=== PATIENT | female | born 1980 | race Caucasian/White ===

== ENCOUNTER 2019-02-24 20:33 | Observation (INO) ==
[2019-02-25] MEDS ORDERED: Naloxone 0.4 MG/ML INJ IVP PRN (00:47)
--- NOTE | 2019-02-25 01:16 | Internal Med History&Physical ---
<JianJamNicole R - Last Filed: 02/25/19 01:12> Date of Encounter: 02/25/19 Time of Encounter: 00:45 Internal Medicine - H&P: HPI Admitted From: Hospital to Hospital Transfer History of present illness: Ms. De La Rosa is a 38 year old female with PMHx of depression and anxiety who presented to [place] emergency department yesterday after an apparent suicide attempt. The patient tried to overdose on medications. Per the report the patient took an unknown amount of Prozac and hydralazine, but note from [facility] states Vistaril which is the medication the patient is prescribed. Patient is currently somnolent but arouses to voice. She refuses to answer questions at this time but states she has no complaints other than that she is cold. [facility] emergency department did speak with poison control about the management of the patient and they state that the patient needed 6 hours of close observation with an EKG obtained 4 hours after ingestion of the medications. Their initial EKG was timed at 17:06 and showed borderline QT prolongation. They were told by poison control that if the repeat EKG showed a QTC greater than 500 ms that the patient should be given 2 g of magnesium via IV. There are also told to repeat labs including magnesium which they did and the labs were normal. There was no repeat EKG done at 2100. Patient denies complaints at this time. The patient does have a pink slip upon transfer from [facility]. Past Med Surg Social Fam HX - Past Medical History Source: old records reviewed Medical history: asthma, migraine, other Additional medical history: MASS ON BRAIN, SEASONAL ALLERGIES Psychiatric history: anxiety, depression - Social History Smoking Status: Current every day smoker Smokeless Tobacco Status: No Alcohol use: none Drug use: IV Drug Use Internal Medicine - H&P: Meds Ibuprofen [Motrin] 600 mg PO Q6HR PRN #16 tab 06/22/18 [Rx] HYDROcodone/Acet 7.5/325 mg [[place] 7.5-325 mg] 1 tab PO TID 12/18/18 [History] Allergy/AdvReac Type Severity Reaction Status Date / Time Buspirone [From BuSpar] Allergy See Verified 06/22/18 20:45 Comments codeine Allergy Hives Verified 12/18/18 17:50 desvenlafaxine [From Pristiq] Allergy See Verified 06/22/18 20:45 Comments morphine Allergy See Verified 06/22/18 20:45 Comments prochlorperazine Allergy Seizure Verified 06/22/18 20:45 [From Compazine] All Systems PM: A 10-system review of systems was performed and is negative for pertinent findings except as documented above in the HPI. - Constitutional Constitutional: as per HPI - EENT Eyes: as per HPI - Cardiovascular Cardiovascular ROS IM: no chest pain, no dyspnea - Respiratory Respiratory: no dyspnea, no wheezing - Gastrointestinal Gastrointestinal: no abdominal pain, no nausea, no vomiting - Musculoskeletal Musculoskeletal ROS IM: no back pain, no muscle weakness, no neck pain - Neurological Neurological ROS: no confusion, no dizziness, no vertigo - Psychiatric Psychiatric: anxiety, depression, suicidal ideation, no auditory hallucinations, no visual hallucinations - Constitutional Vitals: Temp Pulse Resp BP Pulse Ox 97.9 F 75 14 105/69 97 02/24/19 23:53 02/24/19 23:53 02/24/19 23:53 02/24/19 23:53 02/24/19 23:53 Exam: Patient is somnolent but does arouse to voice and is able to answer questions. - Eye Eye exam: Present: EOMI, PERRL - Neck Neck exam general surgery: Present: normal inspection. Absent: tenderness - Respiratory Respiratory exam: Present: CTAB. Absent: wheezes - Cardiovascular Cardiovascular exam: Present: RRR. Absent: diastolic murmur, systolic murmur - GI/Abdominal GI/Abdominal exam: Present: soft. Absent: firm, guarding, rebound, rigid, tenderness - Extremities Exam Extremities exam: Present: normal inspection. Absent: calf tenderness, pedal edema, tenderness - Neurological Exam Neurological exam: Present: alert, oriented X3 - Psychiatric Psychiatric exam: Present: flat affect, suicidal ideation - Skin Skin exam: Present: dry, intact, warm Internal Med - H&P Results - EKG Data -: EKG Interpreted by Myself EKG shows normal: sinus rhythm Rate: normal - EKG Data Prior EKG available for review: yes When compared to previous EKG: there is no significant change Interpretation IM: normal EKG EKG comments: 02/25/19 01:19 EKG was obtained [id number] Heart rate 60 bpm, MI interval 74, QRS duration 108, QT 495, QTc 497 Sinus rhythm without any QT segment prolongation. No ST segment elevations or depressions. Unremarkable EKG. Unchanged from previous EKG obtained at 17:06 on 02/24/2019 - Assessment and Plan (1) Suicide attempt by multiple drug overdose Current Visit: Yes Status: Acute Assessment and plan: Patient transferred from [place] ER after attempted suicide by Prozac and hydralazine Per recommendations from poison control the patient should be monitored and have repeat labs and EKG done Labs are repeated at [place] and were within normal limits EKG repeated here did not show a prolonged QT, therefore we will not give any magnesium at this time Patient does have a sitter due to her suicide attempt She has been pink slipped We will continue to monitor her overnight and once cleared have her speak with [facility] Qualifiers: Encounter type: initial encounter Qualified Code(s): T50.902A - Poisoning by unspecified drugs, medicaments and biological substances, intentional self- harm, initial encounter (2) Depression Current Visit: Yes Status: Acute Assessment and plan: Plan as above Qualifiers: Depression Type: major depressive disorder Major depression recurrence: unspecified whether recurrent Active/Remission status: currently active Major depression episode severity: unspecified Qualified Code(s): F32.9 - Major depressive disorder, single episode, unspecified (3) Anxiety Current Visit: Yes Status: Acute Assessment and plan: Plan as above (4) DVT prophylaxis Current Visit: Yes Status: Acute Assessment and plan: Patient is at low risk as she is ambulatory No prophylaxis at this time - Time Spent With Patient Total time spent is greater than 50% in coordination of care (as documented) at patient's floor/unit and/or counseling patient: - VTE Reasons for not Prescribing Prophylaxis: Treatment not Indicated - Low risk for VTE <Allison Tan - Last Filed: 02/26/19 05:31> Date of Encounter: 02/25/19 Internal Medicine - H&P: HPI History of present illness: Ms. De La Rosa is a 38 year old female All Systems PM: A 10-system review of systems was performed and is negative for pertinent findings except as documented above in the HPI. - Constitutional Vitals: Temp Pulse Resp BP Pulse Ox 98.1 F 69 16 93/54 98 02/26/19 04:40 02/26/19 04:40 02/26/19 04:40 02/26/19 04:40 02/26/19 04:40 Internal Med - H&P Results - Labs CBC & Chem 7: 02/25/19 08:00 02/25/19 08:00 Labs: Short CBC 02/25/19 Range/Units 08:00 WBC 7.4 (4.3-11.1) K/mcL Hgb 12.5 (11.5-15.4) g/dL Hct 38.8 (35.3-44.9) % Plt Count 192 (140-400) K/mcL Neutrophils # 4.1 (1.6-8.9) K/mcL BMP 02/25/19 08:00 Sodium 143 Potassium 3.9 Chloride 109 H Carbon Dioxide 26 BUN 9 Creatinine 0.98 Glucose 104 Calcium 8.8 - Time Spent With Patient Total time spent is greater than 50% in coordination of care (as documented) at patient's floor/unit and/or counseling patient: - Attending Attestation I performed a history and physical examination of the patient and discussed his management with the resident. I reviewed the residents note and agree with the documented findings and plan of care.
[2019-02-25 08:25] LABS: Basophils % 0.5 %; Eosinophils # 0.1 K/mcL (0.0-0.6); Eosinophils % 1.8 %; Hematocrit 38.8 % (35.3-44.9); Hemoglobin 12.5 g/dL (11.5-15.4); Immature Granulocytes % 0.1 % (0-4); Lymphocytes # 2.5 K/mcL (0.6-4.6); Lymphocytes % 33.8 %; Mean Corpuscular HGB Conc 32.2 g/dL (31.6-35.5); Mean Corpuscular Hemoglobin 31.5 pg (28.0-33.3); Mean Corpuscular Volume 97.7 fL (83.0-100.0); Monocytes # 0.6 K/mcL (0.0-1.3); Monocytes % 7.8 %; Neutrophils # 4.1 K/mcL (1.6-8.9); Platelet Count 192 K/mcL (140-400); Red Blood Count 3.97 M/mcL (3.82-4.97); Red Cell Distribution Width 12.4 % (11.5-14.5); White Blood Count 7.4 K/mcL (4.3-11.1)
--- NOTE | 2019-02-25 08:56 | Internal Med Progress Note ---
Hospitalist Progress Note - Encounter Date of Encounter: 02/25/19 - Subjective Interval History: Miss De La Rosa is 38 year old FEmale with a PMH of deppresion and anxiety presented to ER last night after she attempt a suicide by taking overdose of fluoxetine and hydralazine , - Exam Vitals: Temp Pulse Resp BP Pulse Ox 98.1 F 59 15 95/54 98 02/25/19 07:06 02/25/19 07:06 02/25/19 07:06 02/25/19 07:06 02/25/19 07:06 - Time Spent with Patient Total time spent is greater than 50% in coordination of care (as documented) at patient's floor/unit and/or counseling patient: - VTE Reasons for not Prescribing Prophylaxis: Treatment not Indicated - Low risk for VTE Consult Discharge Plan - Plan Referrals: NONE,PCP [Primary Care Provider] -
[2019-02-25 09:35] LABS: BUN/Creatinine Ratio 9 (6-26); Blood Urea Nitrogen 9 mg/dL (6-20); Calcium 8.8 mg/dL (8.6-10.3); Carbon Dioxide 26 mEq/L (23-29); Chloride 109 mEq/L (98-107); Glucose 104 mg/dL (70-105); Osmolality,Calculated 295 (280-300); Phosphorous 3.7 mg/dL (2.7-4.5); Potassium 3.9 mEq/L (3.5-5.1); Sodium 143 mEq/L (136-145); eGFR For African Americans > 60 (> 60); eGFR For Non-African Americans > 60 (> 60)
--- NOTE | 2019-02-25 11:54 | Consult Note ---
Date of Encounter: 02/25/19 Time of Encounter: 11:50 Assessment & Recommendation (1) Major depress dis, severe Current visit: Yes Status: Acute Assessment & Recommendation: Client denies ongoing SI but she remains hopeless and her attempt was serious. Would admit her for inpatient mental health care once medically stable. Would not recommend starting any new meds at this point. Client states she has had bad side effects to mental health meds in the past and she is close enough to her overdose that it would not be clinically useful to start something new this soon. History of Present Illness Requesting Physician: Gregorio Hawthorne DO Reason for consult: overdose History of present illness: Ms. De La Rosa is a 38 year old female who presented to the hospital following an overdose of Prozac and Vistaril. Client reports she took a whole bottle of each. Claims she was not planning to overdose and no longer has active suicidal thoughts. However, she admits to still feeling hopeless. Client has a history of one previous suicide attempt and one previous hospitalization "many years ago." She is not currently linked with a psychiatrist or counselor. PCP prescribes current meds. Lives with her boyfriend and his father. Abuses methamphetamines. Physically healthy except she reports having a brain bleed back in 2014. Has chronic headaches now. Supposed to follow with a Neurologist but has not followed through with making appointments. Strong family history of depression. Has a brother and grandparent who committed suicide. Mother is treated for depression. CC: Gregorio Hawthorne DO Past Med Surg Social Fam HX - Past Medical History Medical history: asthma, migraine, other - Past Psychiatric History Psychiatric history: Reports: anxiety, depression, prior suicide attempt, previous psychiatric hospitalization Family psychiatric history: Yes Family Psychiatric History Details: mother-depression Family History of Suicide: Completed Family Suicide History Details: brother, step-brother, grandparent - Social History Smoking Status: Current every day smoker Smokeless Tobacco Status: No Alcohol use: none Drug use: IV Drug Use Medications & Allergies Ibuprofen [Motrin] 600 mg PO Q6HR PRN #16 tab 06/22/18 [Rx] HYDROcodone/Acet 7.5/325 mg [[place] 7.5-325 mg] 1 tab PO TID 12/18/18 [History] Prozac mg PO DAILY 02/24/19 [History] Vistaril mg PO Q6H PRN 02/24/19 [History] Allergy/AdvReac Type Severity Reaction Status Date / Time Buspirone [From BuSpar] Allergy See Verified 06/22/18 20:45 Comments codeine Allergy Hives Verified 12/18/18 17:50 desvenlafaxine [From Pristiq] Allergy See Verified 06/22/18 20:45 Comments morphine Allergy See Verified 06/22/18 20:45 Comments prochlorperazine Allergy Seizure Verified 06/22/18 20:45 [From Compazine] Review of Systems Constitutional: Reports: other Eyes: Denies: eye pain, vision change Ears, Nose, Throat: Denies: ear pain, throat pain, dental pain, hearing loss, congestion Cardiovascular: Denies: chest pain, palpitations, dyspnea on exertion Respiratory: Denies: cough, dyspnea, wheezes Gastrointestinal: Reports: nausea Genitourinary female: Denies: urgency, dysuria, frequency, abnormal menses, dyspareunia Musculoskeletal: Reports: other Integumentary: Denies: rash, lesions, pruritus Neurological: Reports: headache Endocrine: Denies: fatigue, heat or cold intolerance Hematologic/Lymphatic: Denies: easy bruising, lymphadenopathy Allergic/Immunologic: Denies: urticaria, itchy eyes Psychiatry Exam - Constitutional Vitals: Temp Pulse Resp BP Pulse Ox 98.3 F 74 17 105/64 97 02/25/19 11:34 02/25/19 11:34 02/25/19 11:34 02/25/19 11:34 02/25/19 11:34 General appearance: age & developmentally appropriate, well-groomed, well- nourished - Musculoskeletal Gait: normal Station: relaxed Strength & Tone: normal for patient - Psychiatric Patient Orientation: Yes Person, Yes Time, Yes Place Level of alertness: Alert Behavior: calm, cooperative Psychomotor activity: Normal Eye Contact: Maintains Eye Contact Mood Description: Depressed Affect description: congruent with mood Speech Volume: Normal Speech pattern: normal rate, normal rhythm, normal tone, fluent, spontaneous Language & Vocabulary: consistent with education Thought Process: Linear Thought Content: Yes Suicidal ideation, No Homicidal ideation, No Overt delusions Perceptual Disturbances: No Auditory hallucinations, No Visual hallucinations Attention Span Ability: Capable of Focused Attention Memory Description: Grossly Intact Patient Reliability: Reliable Historian Fund of knowledge: Yes abstraction ability, Yes aware of current events Intelligence Estimate: Average Judgment: Limited Insight: Partial Results - Labs Labs: Laboratory Last Values WBC 7.4 K/mcL (4.3-11.1) 02/25/19 08:00 RBC 3.97 M/mcL (3.82-4.97) 02/25/19 08:00 Hgb 12.5 g/dL (11.5-15.4) 02/25/19 08:00 Hct 38.8 % (35.3-44.9) 02/25/19 08:00 MCV 97.7 fL (83.0-100.0) 02/25/19 08:00 MCH 31.5 pg (28.0-33.3) 02/25/19 08:00 MCHC 32.2 g/dL (31.6-35.5) 02/25/19 08:00 RDW 12.4 % (11.5-14.5) 02/25/19 08:00 Plt Count 192 K/mcL (140-400) 02/25/19 08:00 MPV 10.0 fL (9.4-12.4) 02/25/19 08:00 Immature Gran % 0.1 % (0-4) 02/25/19 08:00 Seg Neutrophils % 56.0 % 02/25/19 08:00 33.8 % 02/25/19 08:00 7.8 % 02/25/19 08:00 1.8 % 02/25/19 08:00 0.5 % 02/25/19 08:00 4.1 K/mcL (1.6-8.9) 02/25/19 08:00 2.5 K/mcL (0.6-4.6) 02/25/19 08:00 0.6 K/mcL (0.0-1.3) 02/25/19 08:00 0.1 K/mcL (0.0-0.6) 02/25/19 08:00 0.0 K/mcL (0.0-0.2) 02/25/19 08:00 Sodium 143 mEq/L (136-145) 02/25/19 08:00 Potassium 3.9 mEq/L (3.5-5.1) 02/25/19 08:00 Chloride 109 mEq/L (98-107) H 07/04/19 08:00 Carbon Dioxide 26 mEq/L (23-29) 02/25/19 08:00 BUN 9 mg/dL (6-20) 02/25/19 08:00 0.98 mg/dL (0.60-1.20) 02/25/19 08:00 Est GFR ( Amer) > 60 (> 60) 02/25/19 08:00 Est GFR (Non-Af Amer) > 60 (> 60) 02/25/19 08:00 9 (6-26) 02/25/19 08:00 Glucose 104 mg/dL (70-105) 02/25/19 08:00 295 (280-300) 02/25/19 08:00 Calcium 8.8 mg/dL (8.6-10.3) 02/25/19 08:00 Phosphorus 3.7 mg/dL (2.7-4.5) 02/25/19 08:00 Magnesium 2.0 mg/dL (1.6-2.6) 02/25/19 08:00 Consult Discharge Plan - Plan Referrals: NONE,PCP [Primary Care Provider] -
--- NOTE | 2019-02-25 15:28 | Internal Med Progress Note ---
Hospitalist Progress Note - Encounter Date of Encounter: 02/25/19 Time of Encounter: 08:20 - Subjective Interval History: Ms. De La Rosa is a 38 year old female who presented to the hospital following an overdose of Prozac and Vistaril. Today the patient was seen she was sitting comfortable . she said she took a whole bottle of each medication due to too much pressure on her , she admits to still feeling hopeless. she has a history of one previous suicide attempt and Strong family history of depression. Has a brother and grandparent who committed suicide. Mother is treated for depression.she had no fever no vomiting no abdominal pain no chest pain just felt cold and nausea she Has chronic headaches now. Supposed to follow with a Neurologist but has not followed through with making appointments. - Exam Vitals: Temp Pulse Resp BP Pulse Ox 98.3 F 74 17 105/64 97 02/25/19 11:34 02/25/19 11:34 02/25/19 11:34 02/25/19 11:34 02/25/19 11:34 - Assessment and Plan (1) Suicide attempt by multiple drug overdose Current Visit: Yes Status: Acute Assessment and Plan: Patient admitted to [facility] after attempted suicide by Prozac and hydralazine she was monitored and lab and EKG was done for her and EKG showes increase QTI to 497 EKG repeated still prolonged QT but less than before , now is 473, therefore we will not give any magnesium at this time psychatric consult was made and they said she will be able to transfer to to inpatient mental health care when she is medically stable , and no medication to be given for deppresion now Patient does have a sitter due to her suicide attempt (2) Anxiety Current Visit: Yes Status: Acute Assessment and Plan: plan as above (3) Depression Current Visit: Yes Status: Acute Assessment and Plan: plan as above - Time Spent with Patient Total time spent is greater than 50% in coordination of care (as documented) at patient's floor/unit and/or counseling patient: Internal Medicine: Result - Labs CBC & Chem 7: 02/25/19 08:00 02/25/19 08:00 Labs: Short CBC 02/25/19 Range/Units 08:00 WBC 7.4 (4.3-11.1) K/mcL Hgb 12.5 (11.5-15.4) g/dL Hct 38.8 (35.3-44.9) % Plt Count 192 (140-400) K/mcL Neutrophils # 4.1 (1.6-8.9) K/mcL BMP 02/25/19 08:00 Sodium 143 Potassium 3.9 Chloride 109 H Carbon Dioxide 26 BUN 9 Creatinine 0.98 Glucose 104 Calcium 8.8 - VTE Reasons for not Prescribing Prophylaxis: Treatment not Indicated - Low risk for VTE Consult Discharge Plan - Plan Referrals: NONE,PCP [Primary Care Provider] - (1) Suicide attempt by multiple drug overdose Qualifiers: Encounter type: initial encounter Qualified Code(s): T50.902A - Poisoning by unspecified drugs, medicaments and biological substances, intentional self-harm, initial encounter (3) Depression Qualifiers: Depression Type: major depressive disorder Major depression recurrence: un specified whether recurrent Active/Remission status: currently active Major depression episode severity: unspecified Qualified Code(s): F32.9 - Major depressive disorder, single episode, unspecified
--- NOTE | 2019-02-25 18:01 | Discharge Summary ---
- NOTES TO OUTPATIENT PROVIDER Notes to Outpatient Provider: 28-year-old female admitted for suicidal attack after taking a full bottle of fluoxitine and hydralazine . She remained asymptomatic except for EKG shows prolonged QT interval 497 today EKG repeated on QT interval was 445 she was transferred to psychiatric inpatient unit ac cording to her psychiatric doctor consult Orders not resulted at time of discharge: Pending orders 02/25/19 00:45 EKG [ECG 12 lead ECG] [ECG] Stat 02/25/19 00:57 EKG [ECG 12 lead ECG] [ECG] Stat 02/25/19 05:00 ECG 12 lead ECG [ECG] Routine ECG 12 lead ECG [ECG] Routine 02/25/19 14:26 EKG [ECG 12 lead ECG] [ECG] Routine Date of Encounter: 02/25/19 Time of Encounter: 10:00 - Discharge Diagnosis (1) Suicide attempt by multiple drug overdose Priority: Primary Status: Acute Qualifiers: Encounter type: initial encounter Qualified Code(s): T50.902A - Poisoning by unspecified drugs, medicaments and biological substances, intentional self- harm, initial encounter (2) Anxiety Priority: Secondary Status: Acute (3) Depression Priority: Secondary Status: Acute Qualifiers: Depression Type: major depressive disorder Major depression recurrence: unspecified whether recurrent Active/Remission status: currently active Major depression episode severity: unspecified Qualified Code(s): F32.9 - Major depressive disorder, single episode, unspecified Hospital course: Ms. De La Rosa is a 38 year old female with a known past medical history of depression and anxiety and a family history of depression and suicidal attempts was attempted by taking flouxitine and hydralazine she is asymptomatic no fever no vomiting no changes. No abdominal pain .the EKG at time of admission shows prolonged QT interval 495 that was repeated again and last one show QTI 445 she is medically stable and according to the psychiatric consultation she would be able to transfer to psychiatric inpatient unit - Time Spent with Patient Total time spent providing and/or coordinating discharge services: - Discharge Medications Prescriptions: Continued HYDROcodone/Acet 7.5/325 mg [[place] 7.5-325 mg] 1 tab PO TID Ibuprofen [Motrin] 600 mg PO Q6HR PRN #16 tab PRN Reason: Pain or fever Discontinued Vistaril mg PO Q6H PRN PRN Reason: Anxiety Prozac mg PO DAILY Home Medications: Ibuprofen [Motrin] 600 mg PO Q6HR PRN #16 tab 06/22/18 [Rx] HYDROcodone/Acet 7.5/325 mg [[place] 7.5-325 mg] 1 tab PO TID 12/18/18 [History] Allergies/Adverse Reactions: Allergy/AdvReac Type Severity Reaction Status Date / Time Buspirone [From BuSpar] Allergy See Verified 06/22/18 20:45 Comments codeine Allergy Hives Verified 12/18/18 17:50 desvenlafaxine [From Pristiq] Allergy See Verified 06/22/18 20:45 Comments morphine Allergy See Verified 06/22/18 20:45 Comments prochlorperazine Allergy Seizure Verified 06/22/18 20:45 [From Compazine] Date of admission: 02/24/19 22:55 Primary care physician: PCP NONE Consults: 02/25/19 08:02 Consult to Psychiatry [CONS] Routine Consulting Provider: Psychiatry Silvana Reason consult: Other 02/25/19 09:01 Consult to Meter Tester Primary [CONS] Routine Reason for SW Consult: Mental Health Resources. Admitted for intentional OD Discharging clinician: Gregorio Hawthorne Anticipated date of discharge: 02/25/19 - Constitutional Vitals: Temp Pulse Resp BP Pulse Ox 98.3 F 74 17 105/64 97 02/25/19 11:34 02/25/19 11:34 02/25/19 11:34 02/25/19 11:34 02/25/19 11:34 General appearance: Present: cooperative, A&O X 3, no acute distress - Head Head exam: Present: atraumatic, normal inspection - Eye Eye exam: Present: EOMI, normal appearance - Neck Neck exam general surgery: Present: full ROM, supple - Respiratory Respiratory exam: Present: CTAB - Cardiovascular Cardiovascular exam: Present: RRR, +S1, +S2 - GI/Abdominal GI/Abdominal exam: Present: normal bowel sounds, soft - Extremities Exam Extremities exam: Present: full ROM, normal capillary refill - Psychiatric Psychiatric exam: Present: depressed, suicidal ideation - Skin Skin exam: Present: intact, warm - Patient Status Condition: Good Functional capacity at discharge: independent ambulation Overall status at discharge: patient is back to baseline - Discharge Instructions Follow Up With: NONE,PCP [Primary Care Provider] - Additional Instructions: Patient is instructed to not take overdose again and follow up with her primary care physician and with hair psychiatric doctor as an outpatient - VTE Reasons for not Prescribing Prophylaxis: Treatment not Indicated - Low risk for VTE
[2019-02-25] MEDS ORDERED: 0.9 % Sodium Chloride 500 ML IVC ONE (18:17)
--- NOTE | 2019-02-25 18:25 | Internal Med Progress Note ---
Hospitalist Progress Note - Encounter Date of Encounter: 02/25/19 Time of Encounter: 10:00 - Subjective Interval History: 42-year-old female admitted to the hospital due to suicidal attempt after taking a full bottle of flouxitine and hydralazine she has a past medical history of depression and anxiety and a positive family history of depression she is stable she has no fever no vomiting no abdominal pain no chest pain except for nausea and the patient was feeling better she is she is still depressed but not agitated and she has no suicidal ideas she only complains of cold temp - Exam Vitals: Temp Pulse Resp BP Pulse Ox 98.1 F 91 18 129/81 99 02/25/19 18:07 02/25/19 18:07 02/25/19 18:07 02/25/19 18:07 02/25/19 18:07 Exam: Gen: Vitals noted. No acute distress. HEENT: Atraumatic; oropharynx clear with moist mucous membranes Cardiac: RRR, no murmur, +S1/S2 Pulmonary:, no wheezes, rales or rhonchi, equal chest expansion Abdomen: soft, nontender, no guarding. No masses or hepatosplenomegaly Extremities: no BLE edema, nontender calf, no cyanosis or clubbing Skin: Normal temperature, turgor and texture; no rash, ulcers or subcutaneous nodules Neuro: moves all extremities, no focal deficits. Psych: Appropriate mood and behavior. A&Ox3, she still feels deppressed but no suicidal ideas - Assessment and Plan (1) Suicide attempt by multiple drug overdose Current Visit: Yes Status: Acute Assessment and Plan: 38-year-old female admitted to the hospital after suicidal attempt she took a full bottle of floxitine and hydralazine. at emeergency Department EKG shows prolonged QT interval 497 , her labs were within normal limits , psychiatric consultation was made for the patient and they states she can be transferred to psychiatric inpatient unit when she is medically today the patient feels better last EKG show QT interval 445, orthostatic blood pressure were positive Plan continue monitoring vital signs IVF 500 NaCL due to +orthostat likly due to dehydration No medication for depression as a recommendation of psychiatry doctor Transferred to psychiatric inpatient unit when she is medically stable (2) Anxiety Current Visit: Yes Status: Acute Assessment and Plan: She is a known case of anxiety the plan is as above plus stopping all her medication as a recommendation of psychiatrist (3) Depression Current Visit: Yes Status: Acute Assessment and Plan: She is an now in case of depression and the plan for her is as above plus stopping Her medication as a recommendation of psychiatry DVT Prophylaxis: SCD - Time Spent with Patient Total time spent is greater than 50% in coordination of care (as documented) at patient's floor/unit and/or counseling patient: Internal Medicine: Result - Labs CBC & Chem 7: 02/25/19 08:00 02/25/19 08:00 Labs: Short CBC 02/25/19 Range/Units 08:00 WBC 7.4 (4.3-11.1) K/mcL Hgb 12.5 (11.5-15.4) g/dL Hct 38.8 (35.3-44.9) % Plt Count 192 (140-400) K/mcL Neutrophils # 4.1 (1.6-8.9) K/mcL BMP 02/25/19 08:00 Sodium 143 Potassium 3.9 Chloride 109 H Carbon Dioxide 26 BUN 9 Creatinine 0.98 Glucose 104 Calcium 8.8 - VTE Reasons for not Prescribing Prophylaxis: Treatment not Indicated - Low risk for VTE Consult Discharge Plan - Plan Additional Instructions: Patient is instructed to not take overdose again and follow up with her primary care physician and with hair psychiatric doctor as an outpatient Referrals: NONE,PCP [Primary Care Provider] - (1) Suicide attempt by multiple drug overdose Qualifiers: Encounter type: initial encounter Qualified Code(s): T50.902A - Poisoning by unspecified drugs, medicaments and biological substances, intentional self-harm, initial encounter (3) Depression Qualifiers: Depression Type: major depressive disorder Major depression recurrence: unspecified whether recurrent Active/Remission status: currently active Major depression episode severity: unspecified Qualified Code(s): F32.9 - Major depressive disorder, single episode, unspecified
[2019-02-26] MEDS ORDERED: Ondansetron 4 MG/2 ML VIAL IVP PRN (00:28)
[2019-02-26] MEDS ORDERED: *HR* LORazepam 2 MG/ML VIAL IVP ONE (00:34)
[2019-02-26 06:40] LABS: Hematocrit 41.9 % (35.3-44.9); Hemoglobin 13.3 g/dL (11.5-15.4); Mean Corpuscular HGB Conc 31.7 g/dL (31.6-35.5); Mean Corpuscular Hemoglobin 31.1 pg (28.0-33.3); Mean Corpuscular Volume 98.1 fL (83.0-100.0); Mean Platelet Volume 10.3 fL (9.4-12.4); Platelet Count 199 K/mcL (140-400); Red Blood Count 4.27 M/mcL (3.82-4.97); Red Cell Distribution Width 12.3 % (11.5-14.5); White Blood Count 7.5 K/mcL (4.3-11.1)
[2019-02-26 08:53] LABS: BUN/Creatinine Ratio 13 (6-26); Blood Urea Nitrogen 14 mg/dL (6-20); Calcium 8.6 mg/dL (8.6-10.3); Carbon Dioxide 28 mEq/L (23-29); Chloride 106 mEq/L (98-107); Glucose 80 mg/dL (70-105); Osmolality,Calculated 289 (280-300); Potassium 3.9 mEq/L (3.5-5.1); Sodium 140 mEq/L (136-145); eGFR For African Americans > 60 (> 60); eGFR For Non-African Americans 58 (> 60)
--- NOTE | 2019-02-26 10:44 | Discharge Summary ---
- NOTES TO OUTPATIENT PROVIDER Notes to Outpatient Provider: 38 year-old female admitted to the hospital due to suicide attempt after taking a full bottle of fluoxetine and hydralazine. patient will be transferred to psychiatric inpatient unit according to psychiatry recommendation . Depression medication stopped Orders not resulted at time of discharge: Pending orders 02/25/19 00:45 EKG [ECG 12 lead ECG] [ECG] Stat 02/25/19 00:57 EKG [ECG 12 lead ECG] [ECG] Stat 02/25/19 05:00 ECG 12 lead ECG [ECG] Routine ECG 12 lead ECG [ECG] Routine 02/25/19 14:26 EKG [ECG 12 lead ECG] [ECG] Routine 02/27/19 04:00 BMP [Basic Metabolic Panel] AM 0400 CBC no Diff [Complete Blood Count w/o Diff] [HEME] AM 0400 Date of Encounter: 02/26/19 Time of Encounter: 10:15 - Discharge Diagnosis (1) Suicide attempt by multiple drug overdose Priority: Primary Status: Acute Qualifiers: Encounter type: initial encounter Qualified Code(s): T50.902A - Poisoning by unspecified drugs, medicaments and biological substances, intentional self- harm, initial encounter (2) Anxiety Priority: Secondary Status: Acute (3) Depression Priority: Secondary Status: Acute Qualifiers: Depression Type: major depressive disorder Major depression recurrence: unspecified whether recurrent Active/Remission status: currently active Major depression episode severity: unspecified Qualified Code(s): F32.9 - Major depressive disorder, single episode, unspecified Hospital course: Ms. De La Rosa is a 38 year old female with a past medical history of depression and anxiety. she was admitted to the hospital after suicide attempt. she took a full bottle of Prozac and hydralazine .here in the hospital she was okay except for EKG at the beginning which shows prolonged QTc interval 497 she was admitted and another EKG done for QTc interval was 445, she never had active chest pain or arrythemia . according to psych recommendation she is able to be transferred to psychiatric inpatient unit when she is stable the orthostatic blood pressure was done for the patient and was negative she is not symptomatic right now except for mild dizziness she has no fever no nausea vomiting abdominal pain chest diarhea or constipation. The patient will be transferred to psychiatric inpatient unit , and is asked to follow up with primary care provider , had depression medication were stopped Discharge discussed with: patient - Time Spent with Patient Total time spent providing and/or coordinating discharge services: - Discharge Medications Prescriptions: Continued Dicyclomine Hcl [Bentyl] 20 mg PO Q6H PRN PRN Reason: ABDOMINAL CRAMPS Discontinued FLUoxetine HCl [PROzac] 20 mg PO DAILY hydrOXYzine HCl [Hydroxyzine HCl] 25 - 50 mg PO BID PRN PRN Reason: Anxiety Vistaril mg PO Q6H PRN PRN Reason: Anxiety Prozac mg PO DAILY Home Medications: Dicyclomine Hcl [Bentyl] 20 mg PO Q6H PRN 02/26/19 [History] Allergies/Adverse Reactions: Allergy/AdvReac Type Severity Reaction Status Date / Time Buspirone [From BuSpar] Allergy See Verified 02/26/19 12:36 Comments codeine Allergy Itching Verified 02/26/19 12:36 desvenlafaxine [From Pristiq] Allergy See Verified 02/26/19 12:36 Comments morphine Allergy See Verified 02/26/19 12:36 Comments prochlorperazine Allergy Seizure Verified 02/26/19 12:36 [From Compazine] Date of admission: 02/24/19 22:55 Primary care physician: PCP NONE Consults: 02/25/19 08:02 Consult to Psychiatry [CONS] Routine Consulting Provider: Psychiatry Silvana Reason consult: Other 02/25/19 09:01 Consult to Revenue Accountant [CONS] Routine Reason for SW Consult: Mental Health Resources. Admitted for intentional OD Discharging clinician: Gregorio Hawthorne Anticipated date of discharge: 02/26/19 - Constitutional Vitals: Temp Pulse Resp BP Pulse Ox 98.5 F 61 16 103/67 98 02/26/19 08:00 02/26/19 08:00 02/26/19 08:00 02/26/19 08:44 02/26/19 08:00 General appearance: Present: cooperative, mild distress, A&O X 3, no acute distress Exam: . - Head Head exam: Present: atraumatic, normal inspection - Eye Eye exam: Present: EOMI, PERRL, sclera anicteric - Neck Neck exam general surgery: Present: full ROM, normal inspection, supple - Respiratory Respiratory exam: Present: CTAB - Cardiovascular Cardiovascular exam: Present: RRR, +S1, +S2 - GI/Abdominal GI/Abdominal exam: Present: normal bowel sounds, soft - Extremities Exam Extremities exam: Present: full ROM, radial pulses palpable and symmetrical - Neurological Exam Neurological exam: Present: alert, oriented X3 - Psychiatric Psychiatric exam: Present: flat affect, normal mood - Skin Skin exam: Present: intact, normal color, warm (.) - Patient Status Disposition: Transfer Psychiatric Hosp Condition: Good Functional capacity at discharge: independent ambulation Overall status at discharge: patient is back to baseline - Discharge Instructions Follow Up With: NONE,PCP [Primary Care Provider] - Additional Instructions: Patient is asked to follow up with her primary care provider in a week or two, also to follow a psychiatric recommendation and to to come back to hospital whenever she developed any suicidal or homicidal ideas - Diet and Activity Activity: increase activity as tolerated Diet: advance to your usual diet - VTE Reasons for not Prescribing Prophylaxis: Treatment not Indicated - Low risk for VTE
[2019-02-26] MEDS ORDERED: Acetaminophen 325 MG TABLET PO ONE (12:48)
[2019-02-26 12:53] VITALS: BP 120/75
--- NOTE | 2019-02-26 15:47 | Electrocardiograph Report ---
[address] [address] Test Date: 2019-02-25 Pat Name: Krzysztof De La Rosa Department: 113 Room: 3B12 Gender: F Sensitometrist: : 1980 Requested By: [id number] Order Number: [id number] Reading MD: Heather Mckenna Measurements Intervals [place] Rate: 61 P: 36 LA: 79 QRS: 60 QRSD: 84 T: 52 QT: 444 QTc: 448 Interpretive Statements SINUS RHYTHM WITH SHORT LA INTERVAL Electronically Signed On 02-26-2019 15:45:54 EDT by Heather Mckenna
--- NOTE | 2019-02-26 15:48 | Electrocardiograph Report ---
[place] [address] Test Date: 2019-02-25 Pat Name: Krzysztof De La Rosa Department: 110 Room: 3B12 Gender: F Director Presales: : 1980 Requested By: Nicole Villar Order Number: [id number] Reading MD: Heather Mckenna Measurements Intervals [place] Rate: 60 P: 107 MI: 74 QRS: 71 QRSD: 108 T: 79 QT: 495 QTc: 497 Interpretive Statements SINUS RHYTHM WITH SHORT MI INTERVAL Electronically Signed On 02-26-2019 15:47:10 EDT by Heather Mckenna
--- NOTE | 2019-02-26 15:50 | Electrocardiograph Report ---
[place] [address] Test Date: 2019-02-25 Pat Name: Krzysztof De La Rosa Department: 110 Room: 3B12 Gender: F Pharmacy Data Analyst: : 1980 Requested By: Nicole Villar Order Number: [id number] Reading MD: Heather Mckenna Measurements Intervals [place] Rate: 58 P: 8 VA: 82 QRS: 63 QRSD: 86 T: 64 QT: 479 QTc: 476 Interpretive Statements SINUS BRADYCARDIA WITH SHORT VA INTERVAL PROLONGED QT INTERVAL Electronically Signed On 02-26-2019 15:49:26 EDT by Heather Mckenna
== END 2019-02-26 14:50 ==
LOC: 3BNU → SUATTDRO 22:55 → 2NNU 02-25 00:21 → 3BNU 02-25 12:28
PROVIDERS: ADMIT Internal Medicine; ATTEND Internal Medicine

== ENCOUNTER 2019-07-08 16:27 | Inpatient (IN) ==
[2019-07-08] MEDS: 0.9 % Sodium Chloride 1,000 ML IVC SCH (20:33)
[2019-07-08] MEDS ORDERED: Ketorolac 30 MG/ML VIAL IVP ONE (20:58)
[2019-07-08] MEDS ORDERED: Aspirin 325 MG TABLET PO ONE (23:41)
[2019-07-08] MEDS ORDERED: Nitroglycerin 0.4 MG TAB.SUBL SL PRN (23:41)
[2019-07-08] MEDS ORDERED: Naloxone 0.4 MG/ML INJ IVP PRN (23:41)
[2019-07-09] MEDS ORDERED: Acetaminophen 325 MG TABLET PO PRN (05:04)
[2019-07-09] MEDS: *HR* Heparin 5,000 UNIT/ML VIAL SQ SCH ×2 (05:35→19:07)
[2019-07-09] MEDS: 0.9 % Sodium Chloride 1,000 ML IVC SCH (05:35)
[2019-07-09] MEDS ORDERED: *HR* Heparin 5,000 UNIT/ML VIAL SQ SCH (06:00)
[2019-07-09 06:49] LABS: Basophils # 0.1 K/mcL (0.0-0.2); Basophils % 0.3 %; Eosinophils # 0.2 K/mcL (0.0-0.6); Eosinophils % 0.7 %; Hematocrit 34.8 % (35.3-44.9); Hemoglobin 11.7 g/dL (11.5-15.4); Immature Granulocytes % 0.7 % (0-4); Lymphocytes % 8.6 %; Mean Corpuscular HGB Conc 33.6 g/dL (31.6-35.5); Mean Corpuscular Volume 95.1 fL (83.0-100.0); Mean Platelet Volume 10.5 fL (9.4-12.4); Monocytes # 1.6 K/mcL (0.0-1.3); Monocytes % 7.1 %; Platelet Count 172 K/mcL (140-400); Red Blood Count 3.66 M/mcL (3.82-4.97); Red Cell Distribution Width 13.1 % (11.5-14.5); Segmented Neutrophils % 82.6 %; White Blood Count 22.8 K/mcL (4.3-11.1)
[2019-07-09 06:53] LABS: INR 1.3; Prothrombin Time 14.4 Seconds (9.4-12.1)
[2019-07-09 06:54] LABS: Neutrophils # 18.8 K/mcL (1.6-8.9)
[2019-07-09 07:07] LABS: Alanine Aminotransferase 300 Units/L (7-52); Albumin 2.8 g/dL (3.5-5.7); Albumin/Globulin Ratio 1.2 (1.1-2.2); Alkaline Phosphatase 115 Units/L (34-104); Aspartate Amino Transferase 280 Units/L (13-39); BUN/Creatinine Ratio 11 (6-26); Bilirubin,Total 0.5 mg/dL (0.3-1.0); Blood Urea Nitrogen 11 mg/dL (6-20); Calcium 7.5 mg/dL (8.6-10.3); Carbon Dioxide 24 mEq/L (23-29); Chloride 109 mEq/L (98-107); Chol/HDL Ratio 3.6 (0-4.9); Cholesterol 97 mg/dL (< 200); Globulin 2.3 g/dL (2.4-3.5); Glucose 133 mg/dL (70-105); HDL Cholesterol 27 mg/dL (40-59); LDL Cholesterol,Calculated 62 mg/dL (0-99); Magnesium 1.7 mg/dL (1.6-2.6); Osmolality,Calculated 295 (280-300); Phosphorous 2.7 mg/dL (2.7-4.5); Potassium 3.2 mEq/L (3.5-5.1); Sodium 142 mEq/L (136-145); Total Protein 5.1 g/dL (6.4-8.9); Triglycerides 42 mg/dL (< 150); eGFR For African Americans > 60 (> 60); eGFR For Non-African Americans > 60 (> 60)
[2019-07-09 07:08] LABS: Albumin 2.8 g/dL (3.5-5.7); Albumin/Globulin Ratio 1.2 (1.1-2.2); Bilirubin,Direct 0.2 mg/dL (0.0-0.2); Bilirubin,Indirect 0.3 mg/dL (0.0-1.0); Bilirubin,Total 0.5 mg/dL (0.3-1.0); Globulin 2.3 g/dL (2.4-3.5); Total Protein 5.1 g/dL (6.4-8.9)
[2019-07-09 07:26] LABS: Hepatitis B Surface Antigen Nonreactive (Nonreactive)
[2019-07-09 07:56] LABS: Hepatitis B Core IgM Nonreactive (Nonreactive)
[2019-07-09 07:57] LABS: Hepatitis A Antibody IgM Nonreactive (Nonreactive)
[2019-07-09] MEDS ORDERED: 0.9 % Sodium Chloride 1,000 ML IVC ONE (08:33)
[2019-07-09] MEDS ORDERED: SUMAtriptan 6 MG/0.5 ML SQ ONE (09:40)
[2019-07-09] MEDS ORDERED: Ketorolac 15 MG/ML VIAL IVP ONE (10:25)
[2019-07-09] MEDS ORDERED: Isovue-370 500 ML BOTTLE IVP ONE (10:27)
[2019-07-09] MEDS ORDERED: Gadolinium Contrast Agent (WT Based) IV PRN (10:28)
[2019-07-09 14:20] LABS: Hepatitis C Virus Antibody Reactive (Nonreactive)
[2019-07-09] MEDS: Acetaminophen/Butalbital/CaffeineTABLET PO PRN (15:15)
[2019-07-09] MEDS: Ondansetron 4 MG/2 ML VIAL IVP PRN (15:16)
[2019-07-09] MEDS ORDERED: hydrOXYzine pamoate 25 MG CAPSULE PO PRN (15:35)
[2019-07-09] MEDS: Piperacillin/Tazobactam 3.375 GM in 0.9 % Sodium Chloride Mini Bag 100 ML IVPB SCH (19:07)
[2019-07-09] MEDS ORDERED: Ketorolac 30 MG/ML VIAL IVP ONE (22:23)
[2019-07-10 01:14] LABS: Basophils # 0.1 K/mcL (0.0-0.2); Basophils % 0.5 %; Eosinophils # 0.2 K/mcL (0.0-0.6); Eosinophils % 1.6 %; Hematocrit 33.9 % (35.3-44.9); Immature Granulocytes % 0.4 % (0-4); Lymphocytes # 2.1 K/mcL (0.6-4.6); Lymphocytes % 15.5 %; Mean Corpuscular HGB Conc 32.4 g/dL (31.6-35.5); Mean Corpuscular Hemoglobin 32.3 pg (28.0-33.3); Mean Corpuscular Volume 99.4 fL (83.0-100.0); Mean Platelet Volume 10.8 fL (9.4-12.4); Monocytes # 0.9 K/mcL (0.0-1.3); Monocytes % 7.1 %; Neutrophils # 9.9 K/mcL (1.6-8.9); Platelet Count 159 K/mcL (140-400); Red Blood Count 3.41 M/mcL (3.82-4.97); Red Cell Distribution Width 13.2 % (11.5-14.5); Segmented Neutrophils % 74.9 %; White Blood Count 13.2 K/mcL (4.3-11.1)
[2019-07-10 01:28] LABS: Alanine Aminotransferase 201 Units/L (7-52); Albumin 2.7 g/dL (3.5-5.7); Albumin/Globulin Ratio 1.2 (1.1-2.2); Alkaline Phosphatase 89 Units/L (34-104); Aspartate Amino Transferase 103 Units/L (13-39); BUN/Creatinine Ratio 14 (6-26); Bilirubin,Total 0.2 mg/dL (0.3-1.0); Blood Urea Nitrogen 11 mg/dL (6-20); Calcium 7.9 mg/dL (8.6-10.3); Carbon Dioxide 25 mEq/L (23-29); Chloride 113 mEq/L (98-107); Globulin 2.3 g/dL (2.4-3.5); Glucose 112 mg/dL (70-105); Osmolality,Calculated 292 (280-300); Potassium 3.6 mEq/L (3.5-5.1); Sodium 141 mEq/L (136-145); eGFR For African Americans > 60 (> 60); eGFR For Non-African Americans > 60 (> 60)
[2019-07-10] MEDS: Piperacillin/Tazobactam 3.375 GM in 0.9 % Sodium Chloride Mini Bag 100 ML IVPB SCH ×3 (02:24→16:43)
[2019-07-10] MEDS: Acetaminophen/Butalbital/CaffeineTABLET PO PRN ×2 (03:16→16:50)
[2019-07-10] MEDS: Ondansetron 4 MG/2 ML VIAL IVP PRN (03:16)
[2019-07-10] MEDS: *HR* Promethazine 25 MG/ML VIAL IVP PRN (11:50)
[2019-07-10] MEDS: clonazePAM 0.5 MG TABLET PO SCH ×2 (13:24→21:29)
[2019-07-11] MEDS: Piperacillin/Tazobactam 3.375 GM in 0.9 % Sodium Chloride Mini Bag 100 ML IVPB SCH (00:37)
[2019-07-11 05:32] LABS: Basophils # 0.1 K/mcL (0.0-0.2); Basophils % 0.8 %; Eosinophils # 0.2 K/mcL (0.0-0.6); Eosinophils % 2.1 %; Hematocrit 37.3 % (35.3-44.9); Immature Granulocytes % 0.8 % (0-4); Lymphocytes # 1.8 K/mcL (0.6-4.6); Lymphocytes % 20.7 %; Mean Corpuscular HGB Conc 33.8 g/dL (31.6-35.5); Mean Corpuscular Hemoglobin 32.1 pg (28.0-33.3); Mean Corpuscular Volume 94.9 fL (83.0-100.0); Mean Platelet Volume 10.9 fL (9.4-12.4); Monocytes # 0.6 K/mcL (0.0-1.3); Monocytes % 7.4 %; Neutrophils # 5.9 K/mcL (1.6-8.9); Platelet Count 174 K/mcL (140-400); Red Blood Count 3.93 M/mcL (3.82-4.97); Red Cell Distribution Width 12.6 % (11.5-14.5); Segmented Neutrophils % 68.2 %; White Blood Count 8.6 K/mcL (4.3-11.1)
[2019-07-11 05:33] LABS: Hemoglobin 12.6 g/dL (11.5-15.4)
[2019-07-11] MEDS ORDERED: Aminoglycoside Consult 1 EACH MC ONE (07:37)
[2019-07-11 07:58] LABS: EBV Ab(Viral Capsid Ag)VCA-IGG >750.0 U/mL (0.0-21.9); EBV Ab(Viral Capsid Ag)VCA-IgM <10.0 U/mL (0.0-43.9)
[2019-07-11 08:43] LABS: HSV 1 DNA DETECTED (Not Detect); HSV 2 DNA Not Detected (Not Detect)
[2019-07-11] MEDS ORDERED: methylPREDNISolone 125 MG/2 ML VIAL IVP ONE (09:45)
[2019-07-11] MEDS: clonazePAM 0.5 MG TABLET PO SCH ×2 (11:37→20:45)
[2019-07-11] MEDS: valACYclovir 500 MG TABLET PO SCH ×2 (11:37→20:45)
[2019-07-11] MEDS: Acetaminophen/Butalbital/CaffeineTABLET PO PRN (11:37)
[2019-07-11] MEDS: *HR* Promethazine 25 MG/ML VIAL IVP PRN ×2 (12:32→20:45)
[2019-07-11 13:09] LABS: HCV Quant Log 4.62 log IU/mL
[2019-07-11] MEDS ORDERED: Ketorolac 30 MG/ML VIAL IVP PRN (14:23)
[2019-07-11] MEDS: *HR* Heparin 5,000 UNIT/ML VIAL SQ SCH (18:14)
[2019-07-12 01:42] LABS: Basophils % 0.2 %; Hematocrit 38.4 % (35.3-44.9); Hemoglobin 13.4 g/dL (11.5-15.4); Immature Granulocytes % 1.2 % (0-4); Lymphocytes # 1.3 K/mcL (0.6-4.6); Lymphocytes % 8.3 %; Mean Corpuscular HGB Conc 34.9 g/dL (31.6-35.5); Mean Corpuscular Hemoglobin 32.1 pg (28.0-33.3); Mean Corpuscular Volume 91.9 fL (83.0-100.0); Mean Platelet Volume 11.6 fL (9.4-12.4); Monocytes # 0.8 K/mcL (0.0-1.3); Monocytes % 5.3 %; Neutrophils # 13.1 K/mcL (1.6-8.9); Platelet Count 212 K/mcL (140-400); Red Blood Count 4.18 M/mcL (3.82-4.97); Red Cell Distribution Width 12.4 % (11.5-14.5)
[2019-07-12 01:43] LABS: White Blood Count 15.4 K/mcL (4.3-11.1)
[2019-07-12] MEDS: *HR* Heparin 5,000 UNIT/ML VIAL SQ SCH (06:56)
[2019-07-12 07:48] LABS: HCV Quant Interpretation DETECTED (Not Detected)
[2019-07-12] MEDS: valACYclovir 500 MG TABLET PO SCH (09:04)
[2019-07-12] MEDS: clonazePAM 0.5 MG TABLET PO SCH (09:04)
[2019-07-12] MEDS: Acetaminophen/Butalbital/CaffeineTABLET PO PRN (18:54)
[2019-07-12 19:48] VITALS: BP 121/70
[2019-07-13 09:36] LABS: HCV Genotype by Sequencing 1A OR 1B
== END 2019-07-12 20:49 | disposition home or self-care (01) | DRG 723 ==
LOC: 3ANU → SUATTDRO 18:00
PROVIDERS: ADMIT Internal Medicine; ATTEND Internal Medicine

== ENCOUNTER 2020-03-16 16:58 | Inpatient (IN) ==
[2020-03-16 17:46] LABS: Basophils # 0.1 K/mcL (0.0-0.2); Basophils % 0.7 %; Eosinophils # 0.1 K/mcL (0.0-0.6); Hematocrit 46.2 % (35.3-44.9); Hemoglobin 14.8 g/dL (11.5-15.4); Immature Granulocytes % 0.6 % (0-4); Lymphocytes # 1.9 K/mcL (0.6-4.6); Lymphocytes % 20.8 %; Mean Corpuscular Volume 96.9 fL (83.0-100.0); Mean Platelet Volume 10.6 fL (9.4-12.4); Monocytes # 0.6 K/mcL (0.0-1.3); Monocytes % 6.5 %; Neutrophils # 6.4 K/mcL (1.6-8.9); Platelet Count 228 K/mcL (140-400); Red Blood Count 4.77 M/mcL (3.82-4.97); Red Cell Distribution Width 13.2 % (11.5-14.5); Segmented Neutrophils % 70.4 %; White Blood Count 9.1 K/mcL (4.3-11.1)
[2020-03-16 17:50] LABS: Bacteria,Urine Few per hpf (None-Few); Bilirubin,Urine Negative (Negative); Blood,Urine Negative (Negative); Clarity,Urine Clear (Clear); Color,Urine Yellow (Yellow); Glucose,Urine (UA) Normal (Normal); Ketones,Urine Trace mg/dL (Negative); Leukocyte Esterase,Urine Small (Negative); Mucus,Urine Few per lpf (None-Few); Nitrite,Urine Negative (Negative); Protein,Urine 30 mg/dL (Neg-Trace); RBC,Urine 0-3 per hpf (0-3); Squamous Epithelial Cell,Urine Moderate per hpf (None-Few)
[2020-03-16] MEDS ORDERED: *HR* LORazepam 1 MG TABLET PO ONE ×2 (18:02→18:09)
[2020-03-16 18:07] LABS: Acetaminophen < 10 mcg/mL (10-20); Alanine Aminotransferase 7 Units/L (7-52); Albumin 3.9 g/dL (3.5-5.7); Albumin/Globulin Ratio 1.4 (1.1-2.2); Alkaline Phosphatase 55 Units/L (34-104); Aspartate Amino Transferase 9 Units/L (13-39); BUN/Creatinine Ratio 18 (6-26); Bilirubin,Direct 0.1 mg/dL (0.0-0.2); Bilirubin,Indirect 0.2 mg/dL (0.0-1.0); Bilirubin,Total 0.3 mg/dL (0.3-1.0); Blood Urea Nitrogen 14 mg/dL (6-20); Carbon Dioxide 26 mEq/L (23-29); Chloride 109 mEq/L (98-107); Ethanol < 10 mg/dL (Less than 10); Globulin 2.7 g/dL (2.4-3.5); Glucose 69 mg/dL (70-105); Osmolality,Calculated 293 (280-300); Potassium 3.5 mEq/L (3.5-5.1); Salicylate < 2.5 mg/dL (15.0-30.0); Sodium 142 mEq/L (136-145); Total Protein 6.6 g/dL (6.4-8.9); eGFR For African Americans > 60 (> 60); eGFR For Non-African Americans > 60 (> 60)
[2020-03-16 18:20] LABS: Thyroid Stimulating Hormone 0.898 mcIU/mL (0.340-5.600)
[2020-03-16 18:21] LABS: Troponin I < 0.03 ng/mL (< 0.04)
[2020-03-16 18:41] LABS: Amphetamine Screen,Urine Positive ng/mL (Cutoff=1000); Barbiturate Screen,Urine Negative ng/mL (Cutoff=200); Benzodiazepines Screen,Urine Negative ng/mL (Cutoff=200); Cannabinoid Screen,Urine Negative ng/mL (Cutoff = 50); Cocaine Screen,Urine Negative ng/mL (Cutoff= 300); Opiate Screen,Urine Negative ng/mL (Cutoff=300); Phencyclidine Screen,Urine Negative ng/mL (Cutoff=25)
[2020-03-16] MEDS ORDERED: Haloperidol Lactate 5 MG/ML VIAL IM PRN (23:53)
[2020-03-16] MEDS ORDERED: MOM Conc 10 ML UD.LIQ PO PRN (23:53)
[2020-03-16] MEDS ORDERED: hydrOXYzine pamoate 25 MG CAPSULE PO PRN (23:53)
[2020-03-16] MEDS ORDERED: haloperidoL 5 MG TABLET PO PRN (23:53)
[2020-03-16] MEDS ORDERED: Acetaminophen 325 MG TABLET PO PRN (23:53)
[2020-03-16] MEDS ORDERED: Mag Hydrox/Al Hydrox/Simeth 30 ML UDC PO PRN (23:53)
[2020-03-17] MEDS: traZODone 50 MG TABLET PO PRN ×2 (01:28→21:23)
[2020-03-17] MEDS: Gabapentin 100 MG CAPSULE PO SCH ×2 (13:38→21:23)
[2020-03-17] MEDS: clonazePAM 1 MG TABLET PO SCH ×2 (13:38→21:23)
[2020-03-18] MEDS: Gabapentin 100 MG CAPSULE PO SCH (08:44)
[2020-03-18] MEDS: clonazePAM 1 MG TABLET PO SCH (08:44)
[2020-03-18 10:24] VITALS: BP 101/70
[2020-03-18] MEDS ORDERED: hydrOXYzine pamoate 25 MG CAPSULE PO PRN (11:46)
== END 2020-03-18 17:05 | disposition home or self-care (01) | DRG 751 ==
LOC: EMEROOARM 16:58 → 1ANU 23:52
PROVIDERS: ADMIT Psychiatry & Neurology Psychiatry; ATTEND Psychiatry & Neurology Psychiatry